=== PATIENT | male | born 1975 | race Caucasian/White ===

== ENCOUNTER 2020-06-27 14:02 | Outpatient (REF) | payer BC, SELFPAY ==
[2020-06-30 17:02] LABS: Patient Race White; SARS-CoV-2 RNA Undetected (Undetected); SARS-CoV-2 Specimen Source Nasal
== END 2020-06-27 14:22 ==
LOC: NCHCN 14:02
PROVIDERS: PCP Internal Medicine; Visit Provider Physician Assistant
DX: Z20.828 Contact with and (suspected) exposure to other viral communicable diseases (principal)
CPT/HCPCS: U0003